=== PATIENT | female | born 1995 | race Caucasian/White ===

== ENCOUNTER 2021-01-01 09:22 | Emergency (ER) | payer OTHER ==
[~2021-01-01] VITALS: Ht 152.4 cm; Wt 65.8 kg
[2021-01-01] MEDS ORDERED: PRENATABS FA T1 EACH PO (09:36)
[2021-01-01] MEDS ORDERED: ZYRTEC10 M3 PO (09:37)
== END 2021-01-01 12:20 | disposition home or self-care (01) ==
LOC: ER 09:22
DX: O26.851 Spotting complicating pregnancy, first trimester (principal); Z3A.10 10 weeks gestation of pregnancy

== ENCOUNTER 2021-04-05 13:03 | Inpatient (IN) | payer OTHER ==
[~2021-04-05] VITALS: Ht 152.4 cm; Wt 71.7 kg
[~2021-04-05 13:03] MED LIST: PRENATABS FA T1 EACH PO; ZYRTEC10 M3 PO
[2021-04-06] MEDS ORDERED: FOLIC ACID1 MG (08:35)
== END 2021-04-07 14:52 | disposition home or self-care (01) | DRG 819 ==
LOC: LDR 13:03 → O/R 04-06 10:45 → LDR 04-06 17:18
PROVIDERS: ADMIT Obstetrics & Gynecology Maternal & Fetal Medicine; ATTEND Obstetrics & Gynecology Maternal & Fetal Medicine
PROC: 0UVC7ZZ Restriction of Cervix, Via Natural or Artificial Opening (ICD-10-PCS; principal; 2021-04-06 09:45)
DX: O34.32 Maternal care for cervical incompetence, second trimester (principal); Z3A.24 24 weeks gestation of pregnancy

== ENCOUNTER 2021-04-20 14:38 | Outpatient (CLI) | payer OTHER ==
[~2021-04-20 14:38] MED LIST changes: +FOLIC ACID1 MG
== END 2021-04-20 15:00 | disposition home or self-care (01) ==
LOC: NST 14:38
PROVIDERS: ATTEND Obstetrics & Gynecology Maternal & Fetal Medicine
DX: Z34.82 Encounter for supervision of other normal pregnancy, second trimester (principal)

== ENCOUNTER 2021-05-12 09:27 | Outpatient (CLI) | payer OTHER | END 2021-05-12 09:57 | disposition home or self-care (01) | LOC: NST 09:27 | PROVIDERS: ATTEND Obstetrics & Gynecology Maternal & Fetal Medicine | DX: Z34.83 Encounter for supervision of other normal pregnancy, third trimester (principal) ==

== ENCOUNTER 2021-05-21 23:56 | Inpatient (IN) | payer OTHER ==
[~2021-05-21] VITALS: Ht 152.4 cm; Wt 1.8 kg
== END 2021-05-26 15:03 | disposition home or self-care (01) | DRG 786 ==
LOC: O/R 23:56 → LDR 23:56 → OB/GYN 23:56 → LDR 05-23 07:48 → O/R 05-23 14:02 → OB/GYN 05-23 17:02
PROVIDERS: ADMIT Obstetrics & Gynecology Maternal & Fetal Medicine; ATTEND Obstetrics & Gynecology Maternal & Fetal Medicine
PROC: 4A1HXCZ Monitoring of Products of Conception, Cardiac Rate, External Approach (ICD-10-PCS; 2021-05-21)
PROC: 10D00Z1 Extraction of Products of Conception, Low, Open Approach (ICD-10-PCS; principal; 2021-05-23 16:00)
DX: O36.8130 Decreased fetal movements, third trimester, not applicable or unspecified (principal); O60.14X0 Preterm labor third trimester with preterm delivery third trimester, not applicable or unspecified; O42.013 Preterm premature rupture of membranes, onset of labor within 24 hours of rupture, third trimester; O62.1 Secondary uterine inertia; Z3A.31 31 weeks gestation of pregnancy; Z37.0 Single live birth; Z20.822 Contact with and (suspected) exposure to COVID-19